=== PATIENT | male | born 1995 | race African-American/Black ===

== ENCOUNTER 2017-10-15 01:58 | Emergency (ER) | payer OTHER ==
[2017-10-15] MEDS: NAPROXEN 250 MG TAB PO (04:07)
== END 2017-10-15 04:11 | disposition home or self-care (01) ==
LOC: M ED 01:58
DX: R53.81 Other malaise (principal); M54.5 Low back pain; F12.20 Cannabis dependence, uncomplicated
CPT/HCPCS: 99283